=== PATIENT | female | born 1960 | race Two or more races ===

== ENCOUNTER 2019-04-15 13:41 | Inpatient (IN) | payer OTHER ==
[~2019-04-15] VITALS: Ht 157.5 cm; Wt 95.4 kg
[2019-04-15] MEDS ORDERED: ACET-2605 PO (14:03)
[2019-04-15] MEDS ORDERED: RIFA300C4 PO (14:03)
[2019-04-15] MEDS ORDERED: MELA3TAB PO (14:03)
[2019-04-15] MEDS ORDERED: SUCR1TAB PO (14:03)
[2019-04-15] MEDS ORDERED: CYCL5TAB PO (14:03)
[2019-04-15] MEDS ORDERED: INSU100V39 SQ (14:03)
[2019-04-15] MEDS ORDERED: CARV12.52 PO (14:03)
[2019-04-15] MEDS ORDERED: OMEP20CA11 PO (14:03)
[2019-04-15] MEDS ORDERED: FERR325T23 PO (14:03)
[2019-04-15] MEDS ORDERED: ASPI-1169 PO (14:03)
[2019-04-15] MEDS ORDERED: LIDO30AD10 TP (14:03)
[2019-04-15] MEDS ORDERED: INSU100V7 SQ (14:03)
[2019-04-15] MEDS ORDERED: FOLI1TAB16 PO (14:03)
[2019-04-15] MEDS ORDERED: BLOO-668 IN (14:03)
[2019-04-15] MEDS ORDERED: SEVE800T7 PO (14:03)
[2019-04-15] MEDS ORDERED: PRIM50TA27 PO (14:03)
[2019-04-15] MEDS ORDERED: DULO60CA45 PO (14:03)
[2019-04-15] MEDS ORDERED: NYST15PO4 TP (14:03)
[2019-04-15] MEDS ORDERED: ACET1TAB12 PO (14:04)
[2019-04-15] MEDS ORDERED: IOHEXOL-300 100 ML VIAL IV ONE (14:24)
[2019-04-15] MEDS ORDERED: MORPHINE SULFATE INJ 4 MG/ML DISP.SYRIN ONE (14:28)
[2019-04-15] MEDS ORDERED: ONDANSETRON HCL/PF 4 MG/2 ML VIAL ONE (14:28)
[2019-04-15] MEDS ORDERED: MORPHINE SULFATE INJ 2 MG/ML DISP.SYRIN IV ONE (14:30)
[2019-04-15] MEDS ORDERED: ONDANSETRON HCL/PF 4 MG/2 ML VIAL IVP ONE (14:30)
[2019-04-15 14:56] LABS: BASOPHILS # (AUTO) 0.1 /CMM (0.0-0.2); BASOPHILS % (AUTO) 1.7 % (0.0-2.0); EOSINOPHILS % (AUTO) 0.8 % (0.0-6.0); HEMATOCRIT 29 % (33-45); HEMOGLOBIN 9.3 g/dL (11.5-14.8); LYMPHOCYTES # (AUTO) 1.6 /CMM (0.8-4.8); LYMPHOCYTES % (AUTO) 22.9 % (20.0-44.0); MEAN CORPUSCULAR HGB CONC 32 g/dl (31.0-36.0); MEAN CORPUSCULAR VOLUME 95 fL (82-100); MONOCYTES # (AUTO) 0.8 /CMM (0.1-1.30); NEUTROPHILS # (AUTO) 4.5 /CMM (1.8-8.9); NEUTROPHILS % (AUTO) 63.6 % (43.0-81.0); PLATELET COUNT (AUTO) 159 /CMM (150-450); RED BLOOD CELL COUNT(AUTO) 3.06 MIL/uL (4.0-5.2); WHITE BLOOD COUNT (AUTO) 7.1 K/uL (4.3-11.0)
[2019-04-15 15:04] LABS: CALCIUM, SERUM 9.1 mg/dL (8.5-10.1); CARBON DIOXIDE 26 mmol/L (21-32); CHLORIDE 98 mmol/L (98-107); CREATININE 3.5 mg/dL (0.6-1.3); GLUCOSE 93 mg/dL (74-106); POTASSIUM 4.5 mmol/L (3.5-5.1); SODIUM SERUM 134 mmol/L (136-145); UREA NITROGEN, BLOOD 71 mg/dL (7-18)
--- NOTE | 2019-04-15 15:22 | NUR ---
PT. BIB RA FROM [facility]. PATIENT IS C/O OF NECK PAIN WITH A 10/10. PATIENT IS ABLE TO MOVE NECK BUT THERE IS PAIN. BLE EDEMA. NO SOB. VSS.
[2019-04-15] MEDS ORDERED: HYDROMORPHONE 1 MG/1 ML DISP.SYRIN ONE (15:40)
[2019-04-15] MEDS ORDERED: HYDROMORPHONE 1 MG/1 ML DISP.SYRIN IV ONE (16:00)
--- NOTE | 2019-04-15 17:23 | NUR ---
TRANSPORTION: MARGARET ART 190, TRIP #[id number]
[2019-04-15] MEDS ORDERED: HYDROCODONE/APAP 10/325MG 1 EA TABLET ONE (17:59)
[2019-04-15] MEDS ORDERED: HYDROCODONE/APAP 10/325MG 1 EA TABLET PO ONE (18:00)
--- NOTE | 2019-04-15 20:26 | NUR ---
BED ASSIGNMENT 311-2
--- NOTE | 2019-04-15 20:46 | NUR ---
NEW BED 307-1 REPORT CALLED TO NITZA MAKI
[2019-04-15 21:15] VITALS: BP 125/50
--- NOTE | 2019-04-15 21:15 | NUR ---
RN OPEN NOTES RECEIVED PATIENT FROM ER VIA [facility]. A/OX3. NO SIGNS OF DISTRESS OR DISCOMFORT. BREATHING EVEN AND UNLABORED. ON 2LPM O2 VIA NC. IV ACCESS IN R HAND, PATENT AND INTACT, NO SIGNS OF REDNESS OR INFILTRATION. ORIENTED PATIENT TO UNIT AND ROOM. BED IN LOW LOCKED POSITION WITH SIDE RAILS X2. CALL LIGHT WITHIN REACH. WILL CONTINUE TO MONITOR.
[2019-04-16] VITALS: BP 118/54
[2019-04-16] MEDS ORDERED: NYSTATIN TOP POWDER 15 GM BOTTLE TP PRN (02:00)
[2019-04-16] MEDS ORDERED: DEXTROSE 50%-WATER 50 ML DISP.SYRIN IV PRN (02:30)
[2019-04-16] MEDS ORDERED: INSULIN REGULAR, HUMAN 100 UNIT/ML 3 ML VIAL SQ PRN (02:30)
[2019-04-16 04:00] VITALS: BP 132/55
[2019-04-16] MEDS: MORPHINE SULFATE INJ 2 MG/ML DISP.SYRIN IV PRN ×5 (04:08→20:55)
[2019-04-16] MEDS ORDERED: ACETAMINOPHEN 325 MG TABLET PO PRN (06:30)
[2019-04-16] MEDS ORDERED: ONDANSETRON HCL/PF 4 MG/2 ML VIAL IVP PRN (06:30)
[2019-04-16] MEDS ORDERED: Z GUARD REMEDY 2 OZ OINT TP PRN (06:30)
[2019-04-16] MEDS: BLOOD SUGAR DIAGNOSTIC 1 EACH STRIP IN SCH ×4 (06:59→22:08)
[2019-04-16] MEDS ORDERED: INSULIN LISPRO/ASPART 100 UNIT/ML CARTRIDGE SQ SCH (07:30)
[2019-04-16] MEDS ORDERED: OMEPRAZOLE 20 MG CAPSULE.DR PO SCH (07:30)
--- NOTE | 2019-04-16 07:36 | NUR ---
RN CLOSING NOTES PATIENT AWAKE IN BED. A/OX3. NO SIGNS OF DISTRESS OR DISCOMFORT. BREATHING EVEN AND UNLABORED. ON 2LPM O2 VIA NC. IV ACCESS IN R HAND, PATENT AND INTACT, NO SIGNS OF REDNESS OR INFILTRATION. ON TELE MONITORING WITH SR 67 NOTED. ALL NEEDS MET. NO SIGNIFICANT CHANGES THROUGH THE NIGHT. PATIENT ASSISTED WITH REPOSITIONING Q2H AND PRN. BED IN LOW LOCKED POSITION WITH SIDE RAILS X2. CALL LIGHT WITHIN REACH. WILL ENDORSE TO AM SHIFT FOR KOKO.
[2019-04-16 08:00] VITALS: BP 96/40
[2019-04-16] MEDS: SEVELAMER CARBONATE 800 MG TABLET PO SCH ×3 (08:00→16:59)
--- NOTE | 2019-04-16 08:00 | NUR ---
ms rn received on bed, awake,alert,oriented x3.not in any form of distress,respirations even and unlabored,no sob noted, lungs are clear,abdomen soft,positive bowel sounds,denies pain at this time, will monitor patient's condition.
--- NOTE | 2019-04-16 09:00 | NUR ---
ms rn refused breakfast, due meds given,tolerated well.
--- NOTE | 2019-04-16 09:55 | NUR ---
WOUND CARE CONSULT: PT PRESENTS WITH LARGE OPEN WOUND TO LEFT LOWER LEG, SKIN TEAR TO RT ARM AND DISCOLORATIONS TO ARM AND TO RT GROIN/LOWER BUTTOCK AREA, PRESENT ON ADMISSION. RECOMMENDATIONS MADE FOR SKIN PROTECTION AND WOUND CARE. RECOMMEND DPM CONSULT FOR LOWER EXTREMITY WOUND. DEFER TO DPM FOR LOWER EXTREMITY WOUND. WILL SEE PRN. PAINTER IN AGREEMENT WITH PLAN OF CARE. [facility] Addendum: 04/16/19 at 0957 by GUERRERO CHANDLER WNDNU Amended: Links added.
[2019-04-16] MEDS: RIFAMPIN 300 MG CAPSULE PO SCH (09:56)
[2019-04-16] MEDS: ASPIRIN 81 MG TAB.CHEW PO SCH (09:56)
[2019-04-16] MEDS: FERROUS SULFATE (325 MG) 325 MG/TAB TABLET PO SCH (09:56)
[2019-04-16] MEDS: DULOXETINE HCL 30 MG CAPSULE.DR PO SCH (09:56)
[2019-04-16] MEDS: LIDOCAINE 5% (PATCH) 1 EA PATCH TP SCH (09:57)
[2019-04-16] MEDS: FOLIC ACID 1 MG TABLET PO SCH (09:57)
[2019-04-16] MEDS: PRIMIDONE 50 MG TABLET PO SCH ×2 (09:57→16:59)
[2019-04-16] MEDS: SUCRALFATE 1 G TABLET PO SCH ×3 (09:57→16:59)
[2019-04-16] MEDS: PANTOPRAZOLE 40 MG TABLET.DR PO SCH (10:00)
[2019-04-16] MEDS: CARVEDILOL 12.5 MG TABLET PO SCH ×2 (10:01→17:00)
[2019-04-16 10:30] VITALS: BP 137/75
--- NOTE | 2019-04-16 13:00 | NUR ---
ms julius was seen by aaliyah cannon/ orders made and carried out.
[2019-04-16 16:00] VITALS: BP 128/57
--- NOTE | 2019-04-16 16:25 | NUR ---
ms rn on bed, no distress noted.
[2019-04-16 20:00] VITALS: BP 122/53
--- NOTE | 2019-04-16 20:08 | NUR ---
MS/RN AT 1930, RECEIVED PATIENT IN BED AWAKE, ALERT, ORIENTED, TALKING ON THE PHONE, COMFORTABLE, NO DISTRESS NOTED, CALL LIGHT IN REACH. WILL MONITOR.
[2019-04-16] MEDS: INSULIN GLARGINE, 100 UNIT/ML CARTRIDGE SQ SCH (22:00)
--- NOTE | 2019-04-16 22:09 | NUR ---
MS/RN BLOOD SUGAR 90, LANTUS 10 UNITS NOT GIVEN, SNACKS GIVEN. WILL MONITOR.
[2019-04-17] MEDS: MORPHINE SULFATE INJ 2 MG/ML DISP.SYRIN IV PRN ×4 (00:54→13:45)
[2019-04-17 06:40] LABS: BASOPHILS # (AUTO) 0.1 /CMM (0.0-0.2); BASOPHILS % (AUTO) 1.2 % (0.0-2.0); EOSINOPHILS % (AUTO) 0.6 % (0.0-6.0); HEMATOCRIT 28 % (33-45); HEMOGLOBIN 8.9 g/dL (11.5-14.8); LYMPHOCYTES # (AUTO) 1.5 /CMM (0.8-4.8); LYMPHOCYTES % (AUTO) 29.5 % (20.0-44.0); MEAN CORPUSCULAR HGB CONC 32 g/dl (31.0-36.0); MEAN CORPUSCULAR VOLUME 96 fL (82-100); MONOCYTES # (AUTO) 0.6 /CMM (0.1-1.30); MONOCYTES % (AUTO) 12.2 % (2.0-12.0); NEUTROPHILS # (AUTO) 2.9 /CMM (1.8-8.9); NEUTROPHILS % (AUTO) 56.5 % (43.0-81.0); PLATELET COUNT (AUTO) 137 /CMM (150-450); RED BLOOD CELL COUNT(AUTO) 2.93 MIL/uL (4.0-5.2); WHITE BLOOD COUNT (AUTO) 5.1 K/uL (4.3-11.0)
[2019-04-17 06:53] LABS: ALBUMIN 2.7 g/dL (3.4-5.0); BILIRUBIN,TOTAL 0.6 mg/dL (0.2-1.0); CALCIUM, SERUM 8.4 mg/dL (8.5-10.1); CREATININE 3.8 mg/dL (0.6-1.3); PHOSPHORUS 6.8 mg/dL (2.5-4.9); POTASSIUM 4.6 mmol/L (3.5-5.1); TOTAL PROTEIN, SERUM 7.1 g/dL (6.4-8.2)
[2019-04-17] MEDS: BLOOD SUGAR DIAGNOSTIC 1 EACH STRIP IN SCH ×4 (07:01→22:18)
[2019-04-17 08:00] VITALS: BP 148/61
--- NOTE | 2019-04-17 08:20 | NUR ---
MS RN RECEIVED ON BED,AWAKE,ALERT,ORIENTED X3,NOT IN ANY FORM OF DISTRESS, RESPIRATIONS EVEN AND UNLABORED,NO SOB NOTED, LUNGS ARE CLEAR,ABDOMEN SOFT,POSITIVE BOWEL SOUNDS, DENIES PAIN AT THIS TIME.
[2019-04-17] MEDS: SEVELAMER CARBONATE 800 MG TABLET PO SCH ×3 (09:22→18:05)
[2019-04-17] MEDS: SUCRALFATE 1 G TABLET PO SCH ×3 (09:23→18:05)
[2019-04-17] MEDS: ASPIRIN 81 MG TAB.CHEW PO SCH (09:23)
[2019-04-17] MEDS: PANTOPRAZOLE 40 MG TABLET.DR PO SCH (09:23)
[2019-04-17] MEDS: RIFAMPIN 300 MG CAPSULE PO SCH (09:23)
[2019-04-17] MEDS: LIDOCAINE 5% (PATCH) 1 EA PATCH TP SCH (09:23)
[2019-04-17] MEDS: PRIMIDONE 50 MG TABLET PO SCH ×2 (09:23→18:05)
[2019-04-17] MEDS: DULOXETINE HCL 30 MG CAPSULE.DR PO SCH (09:23)
[2019-04-17] MEDS: FERROUS SULFATE (325 MG) 325 MG/TAB TABLET PO SCH (09:23)
[2019-04-17] MEDS: FOLIC ACID 1 MG TABLET PO SCH (09:23)
[2019-04-17] MEDS: CARVEDILOL 12.5 MG TABLET PO SCH ×2 (09:24→18:06)
--- NOTE | 2019-04-17 09:30 | NUR ---
MS MAKI BREAKFAST SERVED,DUE MEDS GIVEN TOLERATED WELL.
--- NOTE | 2019-04-17 14:45 | NUR ---
MS RN ON BED, SLEEPING.
[2019-04-17 16:00] VITALS: BP 123/50
--- NOTE | 2019-04-17 16:00 | NUR ---
ms rn patient refused to be repositioned on my shift, yesterday and today due to her neck spasm, no complain noted.
--- NOTE | 2019-04-17 18:00 | NUR ---
ms rn on bed, no distress noted,all needs attended.
--- NOTE | 2019-04-17 19:19 | NUR ---
ms rn on bed,no distress noted.
--- NOTE | 2019-04-17 19:57 | NUR ---
RN NOTES RECEIVED PT. SLEEPING BUT AROUSABLE, A/OX3, NOT IN DISTRESS, NO PAIN NOTED, CALL LIGHT WITHIN REACH, SIDERAILSUPX2, WILL CONTINUE TO MONITOR
[2019-04-17 20:00] VITALS: BP 128/49
[2019-04-17] MEDS: INSULIN GLARGINE, 100 UNIT/ML CARTRIDGE SQ SCH (22:00)
--- NOTE | 2019-04-17 23:20 | NUR ---
RN NOTES WE'RE HAVING A HARD TIME PUTTING AN IV LINE TO THE PT.GOT AN ORDER FROM LOLA CRISTINA FOR A MIDLINE INSERTION... 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
--- NOTE | 2019-04-17 23:25 | NUR ---
GLYNN ZHANG INSERTED A MIDLINE ON THE RIGHT UPPER ARM GAUGE 18
--- NOTE | 2019-04-17 23:35 | NUR ---
RN NOTES COMPLAINED IF TERRIBLE HEADACHE-TYLENOL 650MG PO GIVEN ORDERED, V/ STABLE
[2019-04-18] MEDS: MORPHINE SULFATE INJ 2 MG/ML DISP.SYRIN IV PRN ×5 (00:14→23:01)
--- NOTE | 2019-04-18 00:14 | NUR ---
RN NOTES COMPLAINED OF TERRIBLE NECK PAIN- MORPHINE 2MG IV GIVEN ORDERED, V/S STABLE
--- NOTE | 2019-04-18 05:56 | NUR ---
RN NOTES COMPLAINED OF TERRIBLE NECK PAIN- MORPHINE 2 MG IV GIVEN ORDERED, V/S STABLE
--- NOTE | 2019-04-18 06:18 | NUR ---
RN NOTES AWAKE, MORNING CARE RENDERED, NOT IN DISTRESS, PAIN IS TOLERABLE AT THIS TIME, CALL LIGHT WITHIN REACH, [id number], PT. NEEDS ATTENDED
[2019-04-18 07:44] LABS: BASOPHILS # (AUTO) 0.1 /CMM (0.0-0.2); BASOPHILS % (AUTO) 1.2 % (0.0-2.0); EOSINOPHILS % (AUTO) 0.7 % (0.0-6.0); HEMATOCRIT 28 % (33-45); HEMOGLOBIN 8.8 g/dL (11.5-14.8); LYMPHOCYTES # (AUTO) 1.3 /CMM (0.8-4.8); LYMPHOCYTES % (AUTO) 27.7 % (20.0-44.0); MEAN CORPUSCULAR HGB CONC 32 g/dl (31.0-36.0); MEAN CORPUSCULAR VOLUME 95 fL (82-100); MONOCYTES # (AUTO) 0.6 /CMM (0.1-1.30); MONOCYTES % (AUTO) 11.4 % (2.0-12.0); NEUTROPHILS # (AUTO) 2.9 /CMM (1.8-8.9); PLATELET COUNT (AUTO) 127 /CMM (150-450); RED BLOOD CELL COUNT(AUTO) 2.92 MIL/uL (4.0-5.2); WHITE BLOOD COUNT (AUTO) 4.9 K/uL (4.3-11.0)
[2019-04-18] MEDS: BLOOD SUGAR DIAGNOSTIC 1 EACH STRIP IN SCH ×4 (07:47→21:45)
[2019-04-18 07:50] LABS: CALCIUM, SERUM 8.7 mg/dL (8.5-10.1); CREATININE 3.6 mg/dL (0.6-1.3); MAGNESIUM 2.1 mg/dL (1.8-2.4); PHOSPHORUS 6.4 mg/dL (2.5-4.9); POTASSIUM 4.2 mmol/L (3.5-5.1)
[2019-04-18 08:00] VITALS: BP 131/69
--- NOTE | 2019-04-18 08:00 | NUR ---
ms rn received on bed,awake,alert,oriented x3,having neck pain almost all the time, not in distress at this time, will monitor patient's condition.
--- NOTE | 2019-04-18 09:30 | NUR ---
ms [place] breakfast served,due meds given,tolerated well.
[2019-04-18] MEDS: LIDOCAINE 5% (PATCH) 1 EA PATCH TP SCH (10:05)
[2019-04-18] MEDS: PRIMIDONE 50 MG TABLET PO SCH ×2 (10:06→18:21)
[2019-04-18] MEDS: SUCRALFATE 1 G TABLET PO SCH ×3 (10:06→18:21)
[2019-04-18] MEDS: FERROUS SULFATE (325 MG) 325 MG/TAB TABLET PO SCH (10:06)
[2019-04-18] MEDS: RIFAMPIN 300 MG CAPSULE PO SCH (10:06)
[2019-04-18] MEDS: DULOXETINE HCL 30 MG CAPSULE.DR PO SCH (10:06)
[2019-04-18] MEDS: ASPIRIN 81 MG TAB.CHEW PO SCH (10:06)
[2019-04-18] MEDS: FOLIC ACID 1 MG TABLET PO SCH (10:07)
[2019-04-18] MEDS: CARVEDILOL 12.5 MG TABLET PO SCH ×2 (10:07→17:00)
[2019-04-18] MEDS: SEVELAMER CARBONATE 800 MG TABLET PO SCH ×3 (10:09→18:21)
[2019-04-18] MEDS: PANTOPRAZOLE 40 MG TABLET.DR PO SCH (10:09)
--- NOTE | 2019-04-18 12:00 | NUR ---
ms rn patient refused blood sugar check at this time.
--- NOTE | 2019-04-18 15:30 | NUR ---
ms rn on bed, no distress noted.will monitor patient.
[2019-04-18 16:00] VITALS: BP 137/60
--- NOTE | 2019-04-18 18:00 | NUR ---
MS RN THE SAME THING, PATIENT IS REFUSING TO BE TURNED TODAY,ALL NEEDS ATTENDED.
--- NOTE | 2019-04-18 18:29 | NUR ---
MS RN STILL ON HD, WILL MONITOR PATIENT,BS - 120 - NO COVERAGE NOTED.
--- NOTE | 2019-04-18 19:30 | NUR ---
RN NOTE RECEIVED PT AWAKE ON BED PT. INFORMED THAT SHE'S GOING BACK TO [facility] DISCHARGE INSTRUCTION WAS GIVEN ,, PT. REFUSED TO ON HER UPPER PART OF HER BODY... DRESSING WAS DONE ON HER LEFT LEG, AND ON HER SKIN TEAR, PT. JUST RECEIVED HER PAIN MEDICATION,. DAYSHIFT NURSE GAVE REPORT TO TOR , CALL LIGHT WITHIN REACH, [id number], CONTINUE TO MONITOR
--- NOTE | 2019-04-18 21:30 | NUR ---
RN NOTES SPOKE TO TOR MURPHY CONGREGATE AND GAVE UPDATE
[2019-04-18] MEDS: INSULIN GLARGINE, 100 UNIT/ML CARTRIDGE SQ SCH (21:45)
[2019-04-18 21:49] VITALS: BP 117/52
--- NOTE | 2019-04-18 23:00 | NUR ---
RN NOTES COMPLAINED OF TERRIBLE NECK PAION- MORPHINE 2 MG IV GIVEN ORDERED, V/S STABLE
--- NOTE | 2019-04-18 23:35 | NUR ---
RN NOTES PT LEFT VIA AMBULANCE , V/S STABLE, DISCHARGE INSTRUCTION WAS GIVEN , NOT IN DISTRESS, PAIN MEDICATION WAS GIVEN 15 MINS AGO.. PT. NEEDS ATTENDED
== END 2019-04-18 23:15 | DRG 351 ==
LOC: ER 13:44 → TELE 20:32 → MED 04-16 10:19
PROVIDERS: ADMIT Nurse Practitioner Acute Care; ATTEND Hospitalist
PROC: 05H533Z Insertion of Infusion Device into Right Subclavian Vein, Percutaneous Approach (ICD-10-PCS; principal; 2019-04-17)
PROC: 5A1D70Z Performance of Urinary Filtration, Intermittent, Less than 6 Hours Per Day (ICD-10-PCS; 2019-04-18)
DX: M12.88 Other specific arthropathies, not elsewhere classified, other specified site (principal); E11.22 Type 2 diabetes mellitus with diabetic chronic kidney disease; I12.0 Hypertensive chronic kidney disease with stage 5 chronic kidney disease or end stage renal disease; E87.1 Hypo-osmolality and hyponatremia; E66.01 Morbid (severe) obesity due to excess calories; D63.1 Anemia in chronic kidney disease; I89.0 Lymphedema, not elsewhere classified; N18.6 End stage renal disease; J44.9 Chronic obstructive pulmonary disease, unspecified; K21.9 Gastro-esophageal reflux disease without esophagitis; Z79.4 Long term (current) use of insulin; Z87.891 Personal history of nicotine dependence; F32.9 Major depressive disorder, single episode, unspecified; Z86.11 Personal history of tuberculosis; Z99.2 Dependence on renal dialysis; I87.2 Venous insufficiency (chronic) (peripheral); Z79.82 Long term (current) use of aspirin
CPT/HCPCS: 36415; 70491-TC; 71045-TC; 80048-TC; 80053-TC; 80061-TC; 82962-TC; 83735-TC; 84100-TC; 84484-TC; 85025-TC; 85730-TC; 86706; 87340; 90935-TC; 93307-TC; 93971-TC; A6253; A6403; G0378; J1170; J1815; J2270; J2405; J7040; Q9967